=== PATIENT | male | born 1985 | race Two or more races ===

== ENCOUNTER → 2020-05-08 07:41 | Outpatient (CLI) | payer OTHER ==
[2020-03-13 11:40] VITALS: BMI 25.5
[~2020-05-08 07:41] MED LIST: MELOXICAM TAB 15M
== END | disposition home or self-care (01) ==
LOC: D.MRI 07:41
PROVIDERS: ATTEND Orthopaedic Surgery
DX: M25.561 Pain in right knee (principal)

== ENCOUNTER 2020-06-05 06:41 | Day surgery (SDC) | payer OTHER ==
[~2020-06-05] VITALS: Ht 167.6 cm; Wt 71.7 kg
[~2020-06-05 06:41] MED LIST changes: +ULTRAM50 MG
[2020-06-05 09:12] VITALS: BP 140/93; Ht 167.6 cm; Wt 71.7 kg
--- NOTE | 2020-06-05 14:29 | NUR ---
DISCHARGE INSTRUCTIONS GIVEN AND PT VERBALIZED AN UNDERSTANDING
--- NOTE | 2020-06-05 14:48 | NUR ---
IV D/C'D WITH CANNULA INTACT, PRESSURE HELD AND DRSG PLACED. PAIN 04/15. AT BEDSIDE. DISCHARGED IN STABLE CONDITION
--- NOTE | 2020-06-06 05:59 | OP ---
PATIENT NAME: ABRAM HOWARD MEDICAL RECORD: [id number] :87 LOCATION:[facility] ADMISSION DATE: SURGEON: THIAGO ZAVALETA DO DATE OF OPERATION: 06/05/2020 PROCEDURE PERFORMED: Right knee arthroscopy with lateral meniscal repair. PREOPERATIVE DIAGNOSIS: Right knee lateral meniscal tear, recurrent. POSTOPERATIVE DIAGNOSIS: Right knee lateral meniscal tear, recurrent. INDICATIONS: Mr. Howard is a 34-year-old male who had his right knee scoped and had a lateral meniscal repair done several months ago. He said he fell down stairs and re-tore it. MRI was done confirming the diagnosis. I informed her of the risks of this including retear, arthrofibrosis of the knee, continued pain, need for further surgery, blood clots, infection, bleeding, damage to nerve or vessel in the area, and even and he signed a consent. SURGEON: Thiago Zavaleta DO DESCRIPTION OF PROCEDURE: The patient was taken to the operative suite, laid in supine position, given general anesthetic and given 2 gram of Ancef preoperatively, sedated and then was placed. The right lower extremity was then prepped and draped in sterile fashion. Timeout was performed, everyone was in agreement with the correct side, site, patient and procedure. We began by making an incision of the anterolateral knee through the lateral portal. I then entered the trocar into the joint. I made an incision with an 11-blade scalpel. Trocar then inspected the suprapatellar pouch, medial and lateral gutters, nothing was there and no loose body is seen there rather. I then established an anterior medial portal with an 18-guage spinal needle and 11-blade scalpel. Trocar was then brought in there. I then inspected the medial meniscus. No tear was seen and the cartilage was in good repair. ACL was also in good repair and then [id number]'ed the leg and then went to the lateral compartment. His previous tear suture had ripped out. I then took a biter and removed that. I then saw the radial tear in the almost anterior to medial to middle portion of the lateral meniscus. We then brought in the Geno meniscal tear repair, anchors and repaired it with 1 suture pulling it together very nicely. I then cut that suture, checked the meniscus for any further tears and there were none. I then turned the water off suction on and removed the excess fluid from the knee and then closed the portal sites with 4-0 Monocryl inverted fashion, injected them also with 0.25% Marcaine with epinephrine, approximately 5 mL in each. He was then dressed with Steri-Strips, Adaptic, 4 x 4's, ABD, Webril, Tod wrap. He was awakened and taken to recovery in stable condition. BLOOD LOSS: Minimal. COMPLICATIONS: None. TRANSINT:[id number] Voice Confirmation ID: [id number] DOCUMENT ID: [id number] OPERATIVE REPORT [id number] ABRAM HOWARD MICHAEL D, DO at 0559 CC: [id number] DICTATION DATE: 06/05/20 1534 DIABETES NURSE: 06/06/20 0116 [facility] 06/05/20 [id number] [place] [address]
== END 2020-06-05 14:50 | disposition home or self-care (01) ==
LOC: D.OPS 06:41
PROVIDERS: ATTEND Orthopaedic Surgery
DX: S83.281A Other tear of lateral meniscus, current injury, right knee, initial encounter (principal); X58.XXXA Exposure to other specified factors, initial encounter; M25.561 Pain in right knee